=== PATIENT | male | born 1985 | race Caucasian/White ===

== ENCOUNTER 2023-09-25 16:18 | Emergency (ER) | payer OTHER, SELFPAY ==
[2023-09-25 16:30] VITALS: BP 161/85; PULSE 81; RESP 20; O2SAT 100
--- NOTE | 2023-09-25 16:31 | ED.GENADULT ---
HPI - General Adult General Chief complaint: Skin/Abscess/Foreign Body Stated complaint: Rash Time Seen by Provider: 09/25/23 16:31 Source: patient Mode of arrival: ambulatory Limitations: no limitations History of Present Illness HPI narrative: 38-year-old male patient presents to the [facility] with complaints of a rash x2 months. Patient states the rash is itchy. Patient does not really know where the rash started but states the rash was on bilateral elbows, bilateral flanks. Patient denies any new detergents lotions or soaps. 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 Patient denies taking any [id number] antihistamines or Benadryl since having the rash. Patient states he has used some count mine lotion and aloe as well as some shingle lotion. Related Data Allergies Allergy/AdvReac Type Severity Reaction Status Date / Time No Known Allergies Allergy Verified 09/25/23 16:36 Review of Systems Review of Systems: CONSTITUTIONAL: Denies fever, chills, or sweats. EYES: Denies visual changes, redness, or discharge. ENT: Denies rhinorrhea, congestion, sore throat, or otalgia. CARDIOVASCULAR: Denies chest pain, palpitations, or edema. RESPIRATORY: Denies cough or dyspnea. GASTROINTESTINAL: Denies abdominal pain, nausea, vomiting, or diarrhea. GENITOURINARY: Denies dysuria or hematuria. SKIN: Positive rash with itching. MUSCULOSKELETAL: Denies back pain, joint pain, or myalgia. NEUROLOGIC: Denies headache, numbness, or weakness. PSYCHIATRIC: Denies anxiety or depression. PMFSH Past Medical History Medical History (Updated 09/25/23 @ 17:23 by MARICEL Pope) No significant past medical history Social History Social History Alcohol intake: never Comments At the time of my signature I agree with nursing past medical history, surgical, social, and family history. There is no relevant family history pertinent to the presenting complaint. Exam Narrative: GENERAL: Well-appearing, well-nourished, and in no acute distress. HEAD: Normocephalic, atraumatic. EYES: PERRLA and EOMI. ENT: Nares clear, no rhinorrhea or epistaxis. Mucous membranes moist. NECK: Supple. No lymphadenopathy CHEST: Clear to auscultation. No respiratory distress. HEART: Regular rate and rhythm. No murmur heard. Normal peripheral pulses. ABDOMEN: Soft, nontender, nondistended, normal active bowel sounds. EXTREMITIES: Normal range of motion. No edema. SKIN: Patient has papule erythematous raised rash noted to bilateral flanks and foot appears to be stand paper like healing rash noted bilateral elbows. No open wounds no drainage noted. NEURO: No focal deficits. Alert and oriented x3. Course Course Level of Care: Express Care Visit Vital Signs Vital signs: Vital Signs Pulse Rate 81 09/25/23 16:30 Respiratory Rate 20 09/25/23 16:30 Blood Pressure 161/85 H 09/25/23 16:30 Pulse Oximetry 100 09/25/23 16:30 Oxygen Delivery Room Air 09/25/23 16:30 Pulse Rate 81 09/25/23 16:30 Respiratory Rate 20 09/25/23 16:30 Blood Pressure 161/85 H 09/25/23 16:30 Pulse Oximetry 100 09/25/23 16:30 Oxygen Delivery Room Air 09/25/23 16:30 Vital signs reviewed. The patient has been informed that they may have pre-hypertension or Hypertension based on a BP reading in the department. I recommend that the patient call the primary care provider listed on their discharge instructions or a physician of their choice this week to arrange follow up for further evaluation of possible pre-hypertension or Hypertension Medical Decision Making MDM Narrative Medical decision making narrative: Plan care for patient is discharge home with oral steroids and encouraged get [id number] antihistamines for the itching. Discussed with patient he should follow up with Dermatology if rash persists
== END 2023-09-25 17:20 | disposition home or self-care (01) ==
PROVIDERS: Emergency Provider Nurse Practitioner Family
DX: L25.9 Unspecified contact dermatitis, unspecified cause (principal)
CPT/HCPCS: 99203; G0463

== ENCOUNTER 2023-11-26 16:00 | Emergency (ER) | payer OTHER, SELFPAY ==
[2023-11-26 16:14] VITALS: BP 143/91; PULSE 60; RESP 16; TEMP 37.2; O2SAT 99
--- NOTE | 2023-11-26 16:40 | ED.GENADULT ---
HPI - General Adult General Chief complaint: Skin/Abscess/Foreign Body Stated complaint: medication refill Time Seen by Provider: 11/26/23 16:40 Source: patient Mode of arrival: ambulatory Limitations: no limitations History of Present Illness HPI narrative: 38 yo M presents with c/o itchy rash to abdomen. States last night he was seen here was much worse but had waited 2 months to be seen. Thinks he is allergic to something at work. Last time took steroids and completely went away. Plans to follow up with a primary care physician. All systems reviewed and negative except as noted above. Related Data Allergies Allergy/AdvReac Type Severity Reaction Status Date / Time No Known Allergies Allergy Verified 11/26/23 16:08 Review of Systems Review of Systems: CONSTITUTIONAL: Denies fever, chills, or sweats. EYES: Denies visual changes, redness, or discharge. ENT: Denies rhinorrhea, congestion, sore throat, or otalgia. CARDIOVASCULAR: Denies chest pain, palpitations, or edema. RESPIRATORY: Denies cough or dyspnea. GASTROINTESTINAL: Denies abdominal pain, nausea, vomiting, or diarrhea. GENITOURINARY: Denies dysuria or hematuria. SKIN: Reports itchy skin rash. MUSCULOSKELETAL: Denies back pain, joint pain, or myalgia. NEUROLOGIC: Denies headache, numbness, or weakness. PSYCHIATRIC: Denies anxiety or depression. All other systems reviewed are negative, except as documented in HPI. [facility] Past Medical History Medical History (Updated 11/26/23 @ 16:52 by Mariama Ratliff NP) No significant past medical history Social History Social History Alcohol intake: never Comments At time of signature, agree with nursing past medical, surgical, social and family history. There is no relevant family history pertinent to the presenting complaint. Exam Narrative: GENERAL: This is a well-nourished, well-developed patient, in no apparent distress. HEAD: normocephalic, atraumatic. EYES: PERRL. Sclera clear/white. Vision is grossly intact. EARS: External ears normal NOSE: External nose normal NECK: Neck supple, non-tender without lymphadenopathy, masses or thyromegaly. CARDIOVASCULAR: Regular rate and rhythm without murmurs, gallops, or rubs. RESPIRATORY: Clear to auscultation. Breath sounds equal bilaterally. No wheezes, rales, or rhonchi. SKIN: warm, Dry, intact with no suspicious lesions, good texture and turgor. Fine erythematous papular rash to full sides of trunk and anterior abdomen. Rash is scaly. NEURO: awake, alert, and oriented to person, place and time. There were no obvious focal neurologic abnormalities. EXTREMITIES: No joint tenderness, effusion, or edema noted. Course Course Level of Care: Express Care Visit Vital Signs Vital signs: Vital Signs Temperature 37.2 C 11/26/23 16:14 Pulse Rate 60 11/26/23 16:14 Respiratory Rate 16 11/26/23 16:14 Blood Pressure 143/91 H 11/26/23 16:14 Pulse Oximetry 99 11/26/23 16:14 Oxygen Delivery Room Air 11/26/23 16:14 Temperature 37.2 C 11/26/23 16:14 Pulse Rate 60 11/26/23 16:14 Respiratory Rate 16 11/26/23 16:14 Blood Pressure 143/91 H 11/26/23 16:14 Pulse Oximetry 99 11/26/23 16:14 Oxygen Delivery Room Air 11/26/23 16:14 Reviewed Medical Decision Making MDM Narrative Medical decision making narrative: Patient is aware of diagnosis, understands and agrees to treatment plan. Anticipatory guidance given. Patient agrees to follow-up as directed and is aware of reasons to seek care at the emergency department. Portions of this record may have been created with voice recognition software Vital Signs Vital Signs: Vital Signs Temperature 37.2 C 11/26/23 16:14 Pulse Rate 60 11/26/23 16:14 Respiratory Rate 16 11/26/23 16:14 Blood Pressure 143/91 H 11/26/23 16:14 Pulse Oximetry 99 11/26/23 16:14 Oxygen Delivery Room Air 11/26/23
== END 2023-11-26 16:57 | disposition home or self-care (01) ==
PROVIDERS: Emergency Provider Nurse Practitioner Family
DX: L23.81 Allergic contact dermatitis due to animal (cat) (dog) dander (principal)
CPT/HCPCS: 99213; G0463